=== PATIENT | male | born 1950 | race Caucasian/White ===

== ENCOUNTER → 2016-11-05 | Outpatient (CLI) | payer OTHER ==
[~2016-11-05] MED LIST: ALEVE220 M1 PO; ASPIR 8181 MG PO; AUGMENTIN875 MG PO; BISMUTH SUBSALICYLATE PO; COLACE100 MG PO; FLAGYL500 M1 PO; LIPITOR40 MG PO; LISINOPRIL40 MG PO; MELATONIN PO; MOTRIN400 MG PO; NORCO 5-325 MG1 TAB PO; PROTONIX40 MG PO; THERAGRAN-M1 TAB PO; TYLENOL PM EX-1 EACH PO; ZOLOFT100 M1 PO
== END | disposition disaster alternative care site (69) ==
LOC: GRAD 07:48
PROC: BD11YZZ Fluoroscopy of Esophagus using Other Contrast (ICD-10-PCS; principal; 2016-11-05)
DX: K21.9 Gastro-esophageal reflux disease without esophagitis (principal); R13.10 Dysphagia, unspecified; K44.9 Diaphragmatic hernia without obstruction or gangrene

== ENCOUNTER → 2016-11-15 | Day surgery (SDC) | payer OTHER ==
[~2016-11-15] VITALS: Ht 175.3 cm; Wt 84.7 kg
== END | disposition disaster alternative care site (69) ==
LOC: GPOC 11-14 15:00 → GEND 07:46 → GPOC 15:00
PROC: 0D748ZZ Dilation of Esophagogastric Junction, Via Natural or Artificial Opening Endoscopic (ICD-10-PCS; principal; 2016-11-15)
PROC: 0DB38ZX Excision of Lower Esophagus, Via Natural or Artificial Opening Endoscopic, Diagnostic (ICD-10-PCS; 2016-11-15)
PROC: 0DB68ZX Excision of Stomach, Via Natural or Artificial Opening Endoscopic, Diagnostic (ICD-10-PCS; 2016-11-15)
PROC: 0DB18ZX Excision of Upper Esophagus, Via Natural or Artificial Opening Endoscopic, Diagnostic (ICD-10-PCS; 2016-11-15)
DX: R13.10 Dysphagia, unspecified (principal); K21.9 Gastro-esophageal reflux disease without esophagitis; K29.80 Duodenitis without bleeding; I10 Essential (primary) hypertension; Z90.49 Acquired absence of other specified parts of digestive tract; Z85.46 Personal history of malignant neoplasm of prostate; Z90.79 Acquired absence of other genital organ(s); Z79.899 Other long term (current) drug therapy; Z79.82 Long term (current) use of aspirin; Z98.890 Other specified postprocedural states
CPT/HCPCS: J2001; J7030